=== PATIENT | female | born 1935 | race Caucasian/White ===

== ENCOUNTER 2018-08-03 11:15 | Inpatient (IN) | payer MEDICARE, BC ==
[~2018-08-03] VITALS: Ht 154.9 cm; Wt 84.8 kg
[2018-08-03] MEDS ORDERED: TENORMIN50 MG PO (11:22)
[2018-08-03] MEDS ORDERED: HYDRALAZINE HCL25 MG PO (11:22)
[2018-08-03] MEDS ORDERED: ZANAFLEX4 MG PO (11:23)
[2018-08-03] MEDS ORDERED: OMEPRAZOLE20 M1 PO (11:23)
[2018-08-03] MEDS ORDERED: HYDROCODON-ACE1 EA10 PO (11:24)
[2018-08-03] MEDS ORDERED: LASIX40 MG PO (11:24)
[2018-08-03] MEDS ORDERED: ZYLOPRIM300 MG PO (11:24)
[2018-08-03] MEDS ORDERED: ELIQUIS2.5 MG PO (11:25)
[2018-08-03] MEDS ORDERED: HYDROXYCHLOROQUINE (11:26)
[2018-08-03] MEDS ORDERED: ALDACTONE25 MG PO (11:27)
[2018-08-03] MEDS ORDERED: VITAMIN D5000 UNIT PO (11:27)
[2018-08-03] MEDS ORDERED: [UNRECOGNIZED DRUG - OTHER] (11:28)
[2018-08-03 11:50] LABS: BASOPHILS 0.2 % (0-2); EOSINOPHILS 0.5 % (0-7); HEMATOCRIT 36.7 % (36.0-48.0); HEMOGLOBIN 11.6 g/dL (12-16); IMMATURE GRANULOCYTES 1.1 % (0-5); LYMPHOCYTES 16.6 % (15-50); MCH 29.1 pg (26.0-34.0); MCHC 31.6 g/dL (31.0-37.0); MCV 92.2 fL (80.0-100.0); MONOCYTES 8.4 % (2-11); NEUTROPHILS 73.2 % (40-80); RBC 3.98 10x6/uL (4.00-5.40); RDW 14.4 % (11.5-14.5); WBC 9.4 10x3/uL (4.8-10.8)
[2018-08-03 11:53] LABS: PLATELET COUNT 260 10x3/uL (130-400)
[2018-08-03 12:10] LABS: ALBUMIN 3.4 g/dL (3.4-5.0); ALKALINE PHOSPHATASE 91 U/L (46-116); ALT (SGPT) 24 U/L (10-68); AMYLASE - SERUM 58 U/L (25-115); BILIRUBIN - TOTAL 0.34 mg/dL (0.2-1.3); CALC OSMOLALITY 286 mosm/kg (275-300); CALCIUM 9.7 mg/dL (8.5-10.1); CARBON DIOXIDE 30.2 mmol/L (21.0-32.0); CHLORIDE - SERUM 102 mmol/L (98-107); CREATININE - SERUM 1.5 mg/dL (0.6-1.3); GLUCOSE 124 mg/dL (74-106); LIPASE 129 U/L (73-393); POTASSIUM - SERUM 3.9 mmol/L (3.5-5.1); PROTEIN - SERUM 7.5 g/dL (6.4-8.2); SODIUM 139 mmol/L (136-145); TROPONIN-I < 0.017 ng/mL (0.000-0.060); UREA NITROGEN 36 mg/dL (7-18); eGFR NON AFRICAN AMERICAN 35 mL/min (90-120)
--- NOTE | 2018-08-03 13:37 | NUR ---
URINE SAMPLE SENT TO THE LAB
[2018-08-03 15:09] LABS: APPEARANCE CLEAR (CLEAR); BILIRUBIN NEGATIVE (NEGATIVE); COLOR YELLOW (YELLOW); GLUCOSE NEGATIVE (NEGATIVE); KETONE NEGATIVE (NEGATIVE); NITRITE NEGATIVE (NEGATIVE); PROTEIN NEGATIVE (NEGATIVE); UROBILINOGEN NORMAL (NORMAL)
[2018-08-03 15:17] LABS: BACTERIA MANY /hpf (NONE SEEN); EPITHELIAL CELLS 0-5 /hpf (0-5); RED CELLS - URINE OCC /hpf (0-5); WHITE CELLS - URINE 0-5 /hpf (0-5)
[2018-08-03 16:06] VITALS: BP 169/55
--- NOTE | 2018-08-03 18:20 | NUR ---
I have reviewed this patient and I concur with the Shift Assessment completed by the Licensed Practical Nurse today this shift.
[2018-08-03 20:00] VITALS: BP 130/42
[2018-08-04 04:00] VITALS: BP 180/65
[2018-08-04 05:49] LABS: BASOPHILS 0.1 % (0-2); EOSINOPHILS 0.6 % (0-7); HEMATOCRIT 35.8 % (36.0-48.0); HEMOGLOBIN 11.3 g/dL (12-16); IMMATURE GRANULOCYTES 0.7 % (0-5); LYMPHOCYTES 11.3 % (15-50); MCH 29.1 pg (26.0-34.0); MCHC 31.6 g/dL (31.0-37.0); MCV 92.3 fL (80.0-100.0); MEAN PLATELET VOLUME 9.7 fL (7.4-10.4); MONOCYTES 9.9 % (2-11); NEUTROPHILS 77.4 % (40-80); PLATELET COUNT 273 10x3/uL (130-400); RBC 3.88 10x6/uL (4.00-5.40); RDW 14.5 % (11.5-14.5); WBC 10.9 10x3/uL (4.8-10.8)
[2018-08-04 06:16] LABS: ALBUMIN 2.9 g/dL (3.4-5.0); ANION GAP 12.1 mmol/L (8-16); BILIRUBIN - TOTAL 0.43 mg/dL (0.2-1.3); CALCIUM 9.3 mg/dL (8.5-10.1); CARBON DIOXIDE 28.5 mmol/L (21.0-32.0); POTASSIUM - SERUM 3.6 mmol/L (3.5-5.1); PROTEIN - SERUM 6.5 g/dL (6.4-8.2)
[2018-08-04 06:24] LABS: CREATININE - SERUM 1.1 mg/dL (0.6-1.3)
[2018-08-04 08:00] VITALS: BP 147/69
--- NOTE | 2018-08-04 11:34 | NUR ---
PT RESTING IN BED. NO SIGNS OF DISTRESS. IV TO LEFT FORARM PATENT NO REDNESS OR TENDERNESS. ON TELEMETRY 69 SR. ALL FALL PRECAUTIONS IN PLACE. DENIES ANY FUTHER NEED AT THIS TIME. CALL LIGHT IN REACH. BED LOW POSITION. FAMILY AT BEDSIDE.
--- NOTE | 2018-08-04 12:34 | HP ---
PATIENT: KARLIE MYERS MEDICAL RECORD: [id number] ACCOUNT: [id number] LOCATION:[id number] : 34 ADMISSION DATE: 08/03/18 PCP: YORDY GRIFFITHS MD HISTORY AND PHYSICAL EXAMINATION DATE OF ADMISSION: 08/03/2018 CHIEF COMPLAINT: Lower abdominal pain. HISTORY OF PRESENT ILLNESS: This is an 83-year-old female who was brought to the ER with complaints of pain in the right lower quadrant of the abdomen into the right groin and right anterior thigh, it has been going on for several weeks but really got worse over the last 2 weeks, worse with standing and walking, better with lying, better with rest. She denies any recent trauma. In the ER, white count was normal. Comprehensive metabolic panel was essentially normal except creatinine a little elevated at 1.5. Her amylase and lipase were normal. Urinalysis showed trace leukocytes and many bacteria. CT of the abdomen and pelvis without contrast showed multiple rounded hyperintense lesions in both kidneys, likely hemorrhagic or proteinaceous renal cysts, moderate fecal material is noted in the colon, there is what appears to be diverticulitis in the left lower quadrant of the colon. She is admitted for further treatment. PAST MEDICAL HISTORY: Hypertension, hyperlipidemia, gout, psoriatic arthritis, thyroid nodule, fibromyalgia, rheumatoid arthritis, diastolic dysfunction, left lower extremity DVT after laparoscopic cholecystectomy in 2017. PAST SURGICAL HISTORY: Appendectomy, hysterectomy, cataract repair, left knee arthroscopy in 2005, followed by left total knee arthroplasty by Dr. Castillo. She has had right ankle tendon repair, bilateral carpal tunnel release, left trigger thumb, and cholecystectomy. ALLERGIES: AMITRIPTYLINE AND PENICILLIN. HOME MEDICATIONS: Plaquenil 200 mg once a day, allopurinol 300 mg once a day, atenolol 50 mg once a day, hydrocodone 10/325 one p.o. t.i.d. p.r.n. chronic lower back pain, spironolactone 25 mg once a day, Eliquis 2.5 mg twice a day, hydralazine 25 mg once at bedtime, Lasix 40 mg once a day, tizanidine 4 mg at bedtime, MiraLax p.r.n., and Dulcolax. SOCIAL HISTORY: , retired. HABITS: Never smoked. No alcohol, no drugs. FAMILY HISTORY: Father of colon cancer. He had arthritis and stroke and history of alcohol abuse. Mother of breast cancer. She also had arthritis. REVIEW OF SYSTEMS: GENERAL: No major weight changes. HEENT: No particular sinus or allergy problems. RESPIRATORY: No history of asthma or emphysema. CARDIAC: She has a diastolic dysfunction, followed by [facility] senior quality engineer. HISTORY AND PHYSICAL [id number] KARLIE MYERS GASTROINTESTINAL: She has occasional heartburn. GENITOURINARY: She does state that 2 or 3 times a week she seems to have some sort of vaginal discharge, though she has had a complete hysterectomy. Her daughter, an RN, is concerned that there may be a fistula between the colon and vagina. MUSCULOSKELETAL: She has fibromyalgia. She has arthritic aches and pains. NEUROLOGIC: She has chronic low back pain and sees a chronic pain specialist. She is on chronic pain medication. She has spinal stenosis. PSYCHIATRIC: No depression or melancholia. PHYSICAL EXAMINATION: VITAL SIGNS: Temperature 97.7, pulse 61, respirations 18, blood pressure 169/55, O2 sat 97%. GENERAL: She is awake and alert. She does not appear to be in acute distress. Her daughter is at bedside. SKIN: Warm and dry. HEENT: Grossly within normal limits. NECK: Supple. HEART: Regular rate and rhythm without murmur. LUNGS: Fairly clear. ABDOMEN: Soft. There is some mild tenderness in the lower abdomen and it is symmetrical. No guarding, no rebound, no mass. She shows me where a lot of her pain is and it is down in the groin area, more on the right side. She states this is a lot worse when she is up and trying to walk. EXTREMITIES: Straight leg raise negative for radiating pain. No edema. LABORATORY DATA: Urinalysis, trace leukocytes, many bacteria. CBC with a white count 9400, hemoglobin 11.6, hematocrit 36.7. Basic Metabolic Panel: Sodium 139, potassium 3.9, chloride 102, CO2 30.2, BUN 36, creatinine 1.5, glucose 124, and calcium 9.7. Liver functions are all normal. Amylase 58, lipase is 129. Troponin less than 0.017. CT of the abdomen and pelvis without contrast showed multiple rounded hyperintense lesions in both kidneys, likely hemorrhagic or proteinaceous renal cysts, moderate fecal material in the colon suggests constipation. There is what appears to be diverticulitis in the sigmoid colon. ASSESSMENT: 1. Diverticulitis with lower abdominal pain. 2. Right groin pain and anterior thigh pain. This is concerning for worsening spinal stenosis. 3. Hypertension. 4. Fibromyalgia. PLAN: She is admitted and she is given IV antibiotics for diverticulitis. Consider MRI of the lumbar spine to better look at her nerves there and see if there is any damage especially on the right side. Other tests or procedures as warranted. TRANSINT:[id number] Voice Confirmation ID: [id number] DOCUMENT ID: [id number] HISTORY AND PHYSICAL [id number] KARLIE MYERS WILLIAM MD at 1234 CC: [id number] DICTATION DATE: 08/04/18 0027 FOOD SUPERVISOR: 08/04/18 0243 ADM IN [facility] [address] [place] [address]
[2018-08-04 13:54] VITALS: Ht 154.9 cm; Wt 84.8 kg
[2018-08-04 15:10] VITALS: BP 128/56
--- NOTE | 2018-08-04 18:09 | NUR ---
I have reviewed this patient and I concur with the Shift Assessment completed by the Licensed Practical Nurse today this shift.
[2018-08-04 21:01] VITALS: BP 159/57
[2018-08-05 00:48] VITALS: BP 143/59
[2018-08-05 05:25] VITALS: BP 154/60
--- NOTE | 2018-08-05 09:03 | NUR ---
PATIENT UP TO RESTROOM WITH ASSISTANCE. NO DISTRESS. CL IN REACH
[2018-08-05 09:19] VITALS: BP 167/72
[2018-08-05 12:56] VITALS: BP 154/65
[2018-08-05] MEDS ORDERED: LEVOFLOXACIN500 MG PO (16:46)
[2018-08-05] MEDS ORDERED: FLAGYL500 MG PO (16:47)
--- NOTE | 2018-08-05 18:13 | NUR ---
DISCHARGE INSTRUCTIONS GIVEN TO PATIENT AND WITH UNDERSTANDING VOICED, INCLUDING HOLDING BLOOD THINERS AND CT GUIDED BIOPSY, BOTH VOICED UNDERSTANDING AND PATIENT TAKEN TO PRIVATE CAR VIA WHEELCHAIR
== END 2018-08-05 18:15 | disposition home or self-care (01) | DRG 552 ==
LOC: D.ER 11:15 → D.MS 16:37
PROVIDERS: Family Medicine; ADMIT Family Medicine; ATTEND Family Medicine
DX: M48.061 Spinal stenosis, lumbar region without neurogenic claudication (principal); K57.92 Diverticulitis of intestine, part unspecified, without perforation or abscess without bleeding; I10 Essential (primary) hypertension; M79.7 Fibromyalgia; D41.02 Neoplasm of uncertain behavior of left kidney; D41.01 Neoplasm of uncertain behavior of right kidney; I12.9 Hypertensive chronic kidney disease with stage 1 through stage 4 chronic kidney disease, or unspecified chronic kidney disease; N18.9 Chronic kidney disease, unspecified

== ENCOUNTER 2018-08-12 06:53 | Outpatient (CLI) | payer MEDICARE, BC ==
[~2018-08-12] VITALS: Ht 154.9 cm; Wt 89.1 kg
[~2018-08-12 06:53] MED LIST: ALDACTONE25 MG PO; ELIQUIS2.5 MG PO; FLAGYL500 MG PO; HYDRALAZINE HCL25 MG PO; HYDROCODON-ACE1 EA10 PO; HYDROXYCHLOROQUINE; LASIX40 MG PO; LEVOFLOXACIN500 MG PO; OMEPRAZOLE20 M1 PO; TENORMIN50 MG PO; VITAMIN D5000 UNIT PO; ZANAFLEX4 MG PO; ZYLOPRIM300 MG PO; [UNRECOGNIZED DRUG - OTHER]
[2018-08-12 07:30] LABS: BASOPHILS 0.2 % (0-2); EOSINOPHILS 0.5 % (0-7); HEMATOCRIT 36.8 % (36.0-48.0); LYMPHOCYTES 14.8 % (15-50); MCH 28.9 pg (26.0-34.0); MCHC 32.6 g/dL (31.0-37.0); MCV 88.7 fL (80.0-100.0); MEAN PLATELET VOLUME 9.6 fL (7.4-10.4); MONOCYTES 7.9 % (2-11); NEUTROPHILS 74.6 % (40-80); RBC 4.15 10x6/uL (4.00-5.40); RDW 14.9 % (11.5-14.5); WBC 9.5 10x3/uL (4.8-10.8)
[2018-08-12 07:34] LABS: ANION GAP 9.5 mmol/L (8-16); CALCIUM 9.3 mg/dL (8.5-10.1); CARBON DIOXIDE 28.5 mmol/L (21.0-32.0); CREATININE - SERUM 1.1 mg/dL (0.6-1.3)
[2018-08-12 07:35] LABS: PLATELET COUNT 209 10x3/uL (130-400)
[2018-08-12 07:46] LABS: INR 1.18 (0.85-1.17); PROTIME 14.4 SECONDS (11.6-15.0)
[2018-08-12 07:47] LABS: APTT 28.7 SECONDS (22.8-39.4)
[2018-08-12 07:56] VITALS: BP 150/60; Ht 154.9 cm; Wt 89.1 kg
--- NOTE | 2018-08-12 12:50 | NUR ---
1245 PCXR DONE. FREQUENT VS MAINTAIN DRESSING CDI X2
--- NOTE | 2018-08-12 14:20 | NUR ---
1415 ORDER RECEIVED FOR ZOFRAN OTC GIVEN PER E-MAR. NO EMESIS ONLY NAUSEA. FAMILY AT SIDE.
--- NOTE | 2018-08-12 15:12 | NUR ---
1430 IV REMOVED, PT ASSISTED UP TO BATHROOM, PT A BIG FALL RISK FROM HAVING CRONIC BACK PAIN. FAMILY GAVE PT A PAIN PILL. AFTER GETTING UP TWICE TO USE THE BATHROOM, PT BECAME NAUSEATED. SPECIALS CALLED FOR A [facility] ORDER.
--- NOTE | 2018-08-12 15:14 | NUR ---
1417 MEDICATED FOR NAUSEA SHORTY COHNAN
== END 2018-08-12 15:05 | disposition home or self-care (01) ==
LOC: D.SP 06:53 → D.RAD 09:00 → D.SP 15:05
PROVIDERS: Radiology Diagnostic Radiology; ATTEND Obstetrics & Gynecology
DX: N28.9 Disorder of kidney and ureter, unspecified (principal)

== ENCOUNTER → 2018-09-03 10:09 | Outpatient (CLI) | payer MEDICARE, BC ==
[~2018-09-03] VITALS: Ht 154.9 cm; Wt 84.5 kg
[2018-09-03 11:24] VITALS: BP 154/66; Ht 154.9 cm; Wt 84.5 kg
--- NOTE | 2018-09-03 11:27 | NUR ---
1040-ATTEMPT TO CATHERIZE BLADDER WITH 6 FR. STRAIGHT FEMALE CATH-UNSUCCESSFUL. CATHETERIZE BLADDER UNDER ASEPTIC TECHNIQUE WITH 16 CHINESE-APPROXIMATELY 100CC CLOUDY, MURKY DARK URINE COLLECTED & SENT TO LAB FOR TESTING.
[2018-09-03 12:14] LABS: APPEARANCE CLOUDY (CLEAR); COLOR YELLOW (YELLOW); NITRITE NEGATIVE (NEGATIVE); SPECIFIC GRAVITY 1.015 (1.005-1.020)
[2018-09-03 12:15] LABS: BACTERIA MANY /hpf (NONE SEEN); BILIRUBIN NEGATIVE (NEGATIVE); EPITHELIAL CELLS 0-5 /hpf (0-5); GLUCOSE NEGATIVE (NEGATIVE); KETONE NEGATIVE (NEGATIVE); MUCUS <1+ /lpf (NONE SEEN); PROTEIN 1+ mg/dL (NEGATIVE); UROBILINOGEN NORMAL (NORMAL); WHITE CELLS - URINE >50 /hpf (0-5)
== END | disposition home or self-care (01) ==
LOC: D.OPS 10:00
PROVIDERS: ATTEND Specialist
DX: N39.0 Urinary tract infection, site not specified (principal); M54.9 Dorsalgia, unspecified

== ENCOUNTER 2018-09-17 10:02 | Outpatient (CLI) | payer MEDICARE, BC ==
[~2018-09-17] VITALS: Ht 154.9 cm; Wt 81.8 kg
[2018-09-17 11:56] VITALS: BP 174/83; Ht 154.9 cm; Wt 81.8 kg
--- NOTE | 2018-09-17 12:04 | NUR ---
IN AND OUT CATH COMPLETED, CLEAR YELLOW URINE OBTAINED.
[2018-09-17 12:55] LABS: APPEARANCE HAZY (CLEAR); BACTERIA MODERATE /hpf (NONE SEEN); BILIRUBIN NEGATIVE (NEGATIVE); COLOR YELLOW (YELLOW); EPITHELIAL CELLS 0-5 /hpf (0-5); GLUCOSE NEGATIVE (NEGATIVE); HYALINE CAST OCC /lpf (NONE SEEN); KETONE NEGATIVE (NEGATIVE); MUCUS >1+ /lpf (NONE SEEN); NITRITE NEGATIVE (NEGATIVE); PROTEIN NEGATIVE (NEGATIVE); RED CELLS - URINE 0-5 /hpf (0-5); SPECIFIC GRAVITY 1.015 (1.005-1.020); UROBILINOGEN NORMAL (NORMAL); WHITE CELLS - URINE 0-5 /hpf (0-5)
== END 2018-09-17 12:04 | disposition home or self-care (01) ==
LOC: D.OPS 10:02
PROVIDERS: ATTEND Specialist
DX: N39.0 Urinary tract infection, site not specified (principal)

== ENCOUNTER → 2018-10-09 09:25 | Outpatient (CLI) | payer MEDICARE, BC ==
[2018-09-17 11:56] VITALS: BMI 34.0
--- NOTE | ~2018-10-09 | HEMODYNAMI ---
PATIENT:KARLIE MYERS MEDICAL RECORD: [id number] : 33 LOCATION:[facility] ADMISSION DATE: 10/09/18 Generatedon:10/09/201810:35 Patient name: KARLIE MYERS Patient #: [id number] SSN: : [id number] Date of study: 10/09/2018 Page: Of Hemodynamic Procedure Report Patient Data Patient Demographics Procedure consent was obtained First Name: KARLIE Gender: Female Last Name: LUCIA : 1935 Middle Initial: L Age: 83 year(s) Patient #: [id number] Race: Unknown Additional ID: [id number] Contact details [address]: [address] [place] [address] State: [place] City: [place] Zip code: [address] Admission Admission Data Admission Date: 10/09/2018 Admission Time: 9:25 Procedure Procedure Types Cath Procedure Peripheral Cath Diagnostic Procedure Miscellaneous Aspiration/Injection (Joint) Procedure Description Procedure Date Procedure Date: 10/09/2018 Procedure Start Time: 10:26 Procedure Staff Name Function Roman Parker MD Performing Physician Jordana Benitez RT Scrub Procedure Data Cath Procedure Fluoroscopy Diagnostic fluoroscopy Total fluoroscopy Time: 0.1 time: 0.1 min min Diagnostic fluoroscopy Total fluoroscopy dose: 2 dose: 2 mGy mGy Hemodynamics Rest Pre Cath Intra NCS Post Cath Procedure Log Time Note 10:05:13 Time tracking: Regular hours (M-F 7:00 - 5:00) 10:05:47 KIT EPIDURAL CATHETERIZATION opened to sterile field. 10:06:01 Signed procedure consent form obtained from patient. 10:06:30 Lumbar area was prepped with betadine and draped in sterile fashion 10:24:33 - 10:24:37 Physician arrived 10::38 --------ALL STOP TIME OUT------ 10:24:38 Final Timeout: patient, procedure, and site verified with staff and physician. All members of the team are in agreement. 10:25:53 Full Disclosure recording started 10:26:08 Local anesthetic to Lumbar area with Lidocaine 1% by Roman Parker MD.INITIAL ACCESS ONLY 10:30:52 Procedure started. 10:31:30 Procedure ended.(Physican Out) 10:31:33 Fluoroscopy time 00.10 minutes. 10::37 Fluoroscopy dose: 2 mGy 10:31:37 Flurop Dose total: 2 10:31:41 Procedure and supply charges have been captured, reviewed, submitted an d are correct. Device Usage Item Name Manufacture Quantity Catalog Hospital Part Current Minima l Lot# / Number Charge Number Stock Stock Serial# Code KIT EPIDURAL Teleflex 1 [id number] CATHETERIZATION Signature Audit [place] Stage Time Signature Unsigned Intra-Procedure 10/09/2018 Jordana Benitez 10:35:17 AM RT(R) [facility] [address] [place] [address]
== END | disposition home or self-care (01) ==
LOC: D.SP 09:25 → D.RAD 11:00 → D.SP 11:00
PROVIDERS: ATTEND Specialist
DX: M48.56XA Collapsed vertebra, not elsewhere classified, lumbar region, initial encounter for fracture (principal); M54.5 Low back pain; Z01.812 Encounter for preprocedural laboratory examination; Z79.01 Long term (current) use of anticoagulants

== ENCOUNTER → 2018-11-11 13:12 | Outpatient (CLI) | payer MEDICARE, BC ==
[2018-09-17 11:56] VITALS: BMI 34.0
[~2018-11-11 13:12] MED LIST changes: -HYDROXYCHLOROQUINE; +HYDROXYCHLOROQUINE PO
[2018-11-11 14:05] LABS: CREATININE - SERUM 1.3 mg/dL (0.6-1.3)
== END | disposition home or self-care (01) ==
LOC: D.CT 13:12
PROVIDERS: ATTEND Family Medicine
DX: N32.1 Vesicointestinal fistula (principal)

== ENCOUNTER 2018-11-13 11:00 | Inpatient (IN) | payer MEDICARE, BC ==
[~2018-11-13] VITALS: Ht 157.5 cm; Wt 92.7 kg
[2018-11-13 12:25] LABS: BASOPHILS 0.2 % (0-2); EOSINOPHILS 0.6 % (0-7); HEMATOCRIT 36.5 % (36.0-48.0); HEMOGLOBIN 11.4 g/dL (12-16); IMMATURE GRANULOCYTES 0.5 % (0-5); LYMPHOCYTES 20.1 % (15-50); MCH 28.6 pg (26.0-34.0); MCHC 31.2 g/dL (31.0-37.0); MCV 91.5 fL (80.0-100.0); MEAN PLATELET VOLUME 9.1 fL (7.4-10.4); MONOCYTES 7.2 % (2-11); NEUTROPHILS 71.4 % (40-80); RBC 3.99 10x6/uL (4.00-5.40); RDW 14.7 % (11.5-14.5); WBC 9.5 10x3/uL (4.8-10.8)
[2018-11-13 12:30] LABS: PLATELET COUNT 268 10x3/uL (130-400)
[2018-11-13 12:58] LABS: ANION GAP 12.8 mmol/L (8-16); CALCIUM 8.6 mg/dL (8.5-10.1); CARBON DIOXIDE 31.9 mmol/L (21.0-32.0); CREATININE - SERUM 1.4 mg/dL (0.6-1.3); POTASSIUM - SERUM 3.7 mmol/L (3.5-5.1)
[2018-11-16] VITALS (36 sets, daily range): BP systolic 55–141; BP diastolic 39–96; Ht 157.5 cm; Wt 92.7 kg
[2018-11-16 13:43] LABS: HEMATOCRIT 28.6 % (36.0-48.0); HEMOGLOBIN 8.9 g/dL (12-16)
--- NOTE | 2018-11-16 15:02 | NUR ---
JULIANA [address] LOT#[id number] EXP 05-08-2023 " " LOT#[id number] EXP 07-08-2023
[2018-11-16 17:47] LABS: BASOPHILS 0 % (0-2); EOSINOPHILS 0 % (0-7); HEMATOCRIT 29.7 % (36.0-48.0); HEMOGLOBIN 9.8 g/dL (12-16); LYMPHOCYTES 2.8 % (15-50); MCH 29.2 pg (26.0-34.0); MCV 88.4 fL (80.0-100.0); MEAN PLATELET VOLUME 9.6 fL (7.4-10.4); MONOCYTES 4.6 % (2-11); NEUTROPHILS 91.6 % (40-80); RBC 3.36 10x6/uL (4.00-5.40); RDW 14.4 % (11.5-14.5); WBC 13.5 10x3/uL (4.8-10.8)
[2018-11-16 17:49] LABS: PLATELET COUNT 142 10x3/uL (130-400)
--- NOTE | 2018-11-16 17:50 | NUR ---
REC'D PT FROM OR, DR PARRA AT BEDSIDE. JOANNA DRAIN X 2, MAHER, LEFT RADIAL ART LINE ZEROED, WRIST PROTECTOR INTACT, PULSES PALP. MIDLINE INCISION DRESSING CDI. RIGHT IJ DOUBLE LUMEN DRESSING CDI. CVP MONITOR ON, BICARB DRIP INFUSING, LEVOPHED INFUSING. VENT SETTINGS NOTED. FAMILY UPDATED. MONITORS ON AND WORKING, WILL CONTINUE TO OBSERVE.
[2018-11-16 17:51] LABS: INR 1.49 (0.85-1.17); PROTIME 17.4 SECONDS (11.6-15.0)
--- NOTE | 2018-11-16 18:50 | NUR ---
FAMILY HAS BEEN IN TO SEE PATIENT. UPDATE PROVIDED.
--- NOTE | 2018-11-16 19:00 | NUR ---
REPORT RECEIVED, CARE ASSUMED. PT IS LAYING IN BED INTUBATED AND UNRESPONSIVE AT THIS TIME. PT HAS AN A-LINE TO LEFT RADIAL WITH A GOOD WAVE FORM. PT IS ON A DRIP AT THIS TIME TO MAINTAIN BP. INITIAL ASSESSMENT COMPLETED, SEE FLOWSHEET. NO SIGNS OF ACUTE DISTRESS NOTED AT THIS TIME. WILL CONTINUE TO MONITOR.
--- NOTE | 2018-11-16 19:30 | NUR ---
IT IS NOTED AT THIS TIME THAT PT'S BP IS STARTING TO FALL. PAGED DR PARRA FOR ORDERS. ORDERS WERE RECEIVED TO DO A STAT ABG. ABG OBTAINED AND DR PARRA WAS PAGED AGAIN FOR THE RESULTS. ORDERS RECEIVED. WILL CONTINUE TO MONITOR.
--- NOTE | 2018-11-16 20:00 | NUR ---
FAMILY IS AT BEDSIDE AT THIS TIME. FAMILY WANTS TO MAKE SURE WE ARE AWARE THAT THEY WANT PT TO BE A DNR. INFORMED DR PARRA OF THIS FACT. FURTHER ORDERS RECEIVED. PT BP CONTINUES TO BE LOW. WILL CONTINUE TO MONITOR.
--- NOTE | 2018-11-16 21:00 | NUR ---
UPDATED DR PARRA REGARDING PT STATUS. ORDERS RECEIVED AT THIS TIME. WILL CONTINUE TO MONITOR.
--- NOTE | 2018-11-16 22:00 | NUR ---
UPDATED DR PARRA REGARDING PT'S MOST RECENT LAB WORK, NEW ORDERS RECEIVED. PT'S BP CONTINUES TO BE LOW. NO FURTHER NEEDS NOTED. WILL CONTINUE TO MONITOR.
[2018-11-16 22:12] LABS: BASOPHILS 0.1 % (0-2); EOSINOPHILS 0.1 % (0-7); HEMOGLOBIN 8.4 g/dL (12-16); IMMATURE GRANULOCYTES 4.9 % (0-5); LYMPHOCYTES 10.7 % (15-50); MCH 29.9 pg (26.0-34.0); MCHC 32.3 g/dL (31.0-37.0); MEAN PLATELET VOLUME 9.6 fL (7.4-10.4); MONOCYTES 6.8 % (2-11); NEUTROPHILS 77.4 % (40-80); RBC 2.81 10x6/uL (4.00-5.40); RDW 15.4 % (11.5-14.5); WBC 13.2 10x3/uL (4.8-10.8)
[2018-11-16 22:27] LABS: APTT 62.6 SECONDS (22.8-39.4)
[2018-11-16 22:33] LABS: ALBUMIN 0.7 g/dL (3.4-5.0); BILIRUBIN - TOTAL 0.49 mg/dL (0.2-1.3); CALCIUM 8.4 mg/dL (8.5-10.1); CARBON DIOXIDE 16.6 mmol/L (21.0-32.0); CREATININE - SERUM 1.8 mg/dL (0.6-1.3)
[2018-11-16 22:42] LABS: ANION GAP 25.1 mmol/L (8-16); PROTEIN - SERUM 1.6 g/dL (6.4-8.2)
[2018-11-16 22:44] LABS: INR 3.56 (0.85-1.17); MCV 92.5 fL (80.0-100.0); PLATELET COUNT 59 10x3/uL (130-400); POTASSIUM - SERUM 6.7 mmol/L (3.5-5.1); PROTIME 34.8 SECONDS (11.6-15.0)
[2018-11-16 22:58] LABS: PLATELET ESTIMATE DECREASED
--- NOTE | 2018-11-16 23:00 | NUR ---
REASSESSMENT COMPLETED, SEE FLOWSHEET FOR DETAILS. PT IS LAYING IN BED UNRESPOSIVE AND INTUBATED. PT'S BP CONTINUES TO BE LOW. AT THIS TIME IT IS ALSO NOTED THAT PT'S STOMACH APPEARS TO BE LARGER THEN PREVIOUSLY. STOMACH IS HARD TO TOUCH. JOANNA DRAIN ON THE LEFT SIDE IS NOT PUTTING OUT MUCH RIGHT SIDE. EMPTIED JOANNA DRAIN ON LEFT SIDE AND RECOMPRESSED, DARK RED LIQUID STARTED TO SQUIRT INTO JOANNA CONTAINER. A TOTAL OF 1000ML WAS EMPTYED FROM JOANNA ON LEFT SIDE IN THE MATTER OF APPROXIMATELY ONE HOUR. DR PARRA WAS INFORMED OF THIS AND ALSO OF THE BLOOD LEAKING FROM AROUND JOANNA DRAIN SITE. NO NEW ORDERS RECEIVED AT THIS TIME. WILL CONTINUE TO MONITOR.
[2018-11-17] VITALS (20 sets, daily range): BP systolic 22–78; BP diastolic 20–54
--- NOTE | 2018-11-17 | NUR ---
PT'S BP CONTINUES TO BE LOW. JOANNA DRAIN CONTINUES TO PUT OUT COPIOUS AMOUNTS OF DARK RED LIQUID. CONTINUING WITH PLAN OF CARE AT THIS TIME.
--- NOTE | 2018-11-17 01:00 | NUR ---
CONTINUING WITH PLAN OF CARE AT THIS TIME. DR PARRA IS BEING GIVEN REGULAR UPDATES TO PT'S PROGRESSIVELY DECLINING STATUS.
--- NOTE | 2018-11-17 03:00 | NUR ---
RECHECKED PT'S ABG, SEVERAL CRITICAL LABS. PT'S BP IS DROPPING FURTHER AND QUICKLY. INFORMED PT'S FAMILY OF THIS FACT AND ALLOWED THEM TO COME BACK TO SEE PT. DR PARRA INFORMED OF PT STATUS AND PT'S MOST RECENT LABWORK. INFORMED THAT DR PARRA WAS ON HIS WAY IN AND HE REQUESTED TO HAVE THE FAMILY PRESENT.
--- NOTE | 2018-11-17 03:34 | OP ---
PATIENT NAME: KARLIE MYERS MEDICAL RECORD: [id number] :33 LOCATION:.[facility] D.2304 ADMISSION DATE:11/16/18 SURGEON: COOPER PARRA MD DATE OF OPERATION: 11/16/2018 SURGEON: Copoer Parra MD PREOPERATIVE DIAGNOSES: Colovesical fistula, chronic pelvic pain, recurrent UTI. POSTOPERATIVE DIAGNOSES: Colovesical fistula, chronic pelvic pain, recurrent UTI. PROCEDURE PERFORMED: 1. Laparoscopic mobilization of splenic flexure. 2. Laparotomy with sigmoid colectomy. 3. Splenectomy. 4. Cystoscopy with right ureteral stent insertion by Dr. Garcia. Please see separate operative report. CO-SURGEON: Levi Foreman MD ANESTHESIA: General. COMPLICATIONS: Acute blood loss. WOUND CLASS: Contaminated. OPERATIVE COURSE: After consent was obtained, the patient was taken to the operating room and placed in the supine position on the operating table. Next, general anesthesia was given via endotracheal intubation after a timeout was performed to confirm the correct patient and procedure. An Ioban dressing was placed. Local anesthetic was injected into the right lateral quadrant. A stab incision was made with 11-blade scalpel. Using a 5-mm bladeless optical trocar, the abdomen was entered under direct laparoscopic vision. Adequate pneumoperitoneum was achieved. The abdominal cavity was inspected, no evidence of bile injury, no evidence of bleeding. Three additional trocars were then placed, one in the right lower quadrant, one in the left lower quadrant, and one just below the umbilicus. All incisions were made with 11-blade scalpel. Trocars were placed under direct laparoscopic vision. The sigmoid colon was identified. It was densely adherent to the left lateral pelvic side wall. It was nonmobile. The sigmoid colon was unable to be mobilized laparoscopically. At this time, I decided to go ahead and perform laparoscopic mobilization of the splenic flexure. The white line of Toldt was taken using the Harmonic scalpel on the left lateral pelvic side wall. When we got to the splenic flexure, the midline 5-mm trocar was removed. A skin incision was made and the GelPort was placed. Using a hand-assisted laparoscopic approach, the splenic flexure was mobilized using the Harmonic scalpel. Once this was complete, the laparoscopic instruments were removed. The GelPort was removed and the mobilization was attempted at the sigmoid colon. The sigmoid colon was densely adherent all the way to the level of the pelvis. Blunt dissection was performed on the lateral pelvic side wall once a plane was created surgically. Careful dissection ensued, the sigmoid colon was mobilized medially. The left ureter was identified and vessel loop was placed. The sigmoid colon was indurated. Dissection then continued very slowly into the pelvis. The left ureter was OPERATIVE REPORT [id number] KARLIE MYERS traced as far to the pelvis as it could safely. There were no discernible tissue planes between the bladder and the anterior surface of the rectum. Again, the degree of difficulty in the dissection was substantial. A surgical plane was created using electrocautery. There were multiple areas of induration. Once the fistula was crossed, a single suture was placed into the dome of the bladder. The right ureter was then next identified. The rectum was unable to be mobilized off the left lateral pelvic side wall. At this time, intraoperative consultation was placed for Dr. Levi Garcia for cystoscopy and ureteral stent insertions as well as an intraoperative consult to my partner, Dr. Levi Foreman for further delineation of the anatomy. A cystoscopy was performed. There was no evidence of bowel perforation. Dr. Garcia performed a retrograde pyelogram. The left ureter had contrast that did extend to the left renal pelvis, but there was a marked area of stricturing just at the bladder trigone and distal ureter. He was unable to pass a wire or a stent through the left ureter. His attention was then turned to the right ureter. The orifice was cannulated. A wire was passed and a double-J stent was placed. Meticulous dissection was performed trying to mobilize the rectum off the left lateral pelvic side wall, which was unable to be accomplished safely. The presacral fascia was dissected in an effort to further mobilized the rectum to see if there was going to find an enough area of healthy tissue to perform anastomosis. The diseased portion of the rectum extended well into the bladder trigone and left ureter, which did not allow for us to perform an anastomosis safely. There was some contrast extravasation noted at the left ureter on pyelogram. I did not feel safe at this time to perform a primary anastomosis due to lack of viable healthy rectum and high rate of leak. During dissection of the presacral fascia, a pelvic vein was encountered, which had significant intraoperative hemorrhage. The hemorrhage was controlled with direct pressure, Fibrillar dressings and argon plasma beam coagulation. At this time, 2 JOANNA drains were placed into the pelvis through the previous trocar sites. Methylene blue was given earlier in the case. There was green urine in the Goodwin bag. There was no evidence of urine extravasation during the operation. Next, at this time, all retractors and lap pads were taken out of the pelvis. Direct pressure was held in the aorta during the fluid resuscitation. The patient received a total of 6 units of blood, 2 units of FFP, and 1 unit of platelets. Upon further investigation, there was also an area of significant splenic bleeding. At this time, an emergent splenectomy was performed using the YARIEL linear cutting stapler with adequate hemostasis to allow for full mobilization of the spleen and the midline incision was extended superiorly. At this time, the abdomen was copiously irrigated and suctioned with several liters of warm normal saline. The abdomen was copiously inspected. There was no evidence of bowel injury. No evidence of bleeding. The small bowel was run from ligament of Treitz to the terminal ileum on [address] Foreman was present throughout the second throughout the majority of the operation serving as a cosurgeon and web press operator assistant. At this time, the fascia was closed with #1 looped PDS. Skin was closed with reagan. The patient was transferred to the ICU in critical condition, intubated. TRANSINT:[id number] Voice Confirmation ID: [id number] DOCUMENT ID: [id number] OPERATIVE REPORT [id number] KARLIE MYERS,COOPER Kaminski MD at 0334 CC: [id number] DICTATION DATE: 11/16/18 1800 TECHNICIAN BIOLOGICAL HEALTH: 11/17/18 0152 ADM IN [facility] [id number] [place] [address]
--- NOTE | 2018-11-17 03:35 | NUR ---
FAMILY HAS DECIDED AT THIS TIME TO WITHDRAW CARE FROM THE PT DUE TO PT'S DECLINING STATUS AND WHAT THEY BELIEVE TO BE THE PT'S WISHES. DR PARRA PRESENT FOR THIS CONVERSATION. PRESSORS TO MAINTAIN BP TURNED OFF AT THIS TIME. CONTINUING TO PROVIDE SUPPORT TO PT AND FAMILY.
--- NOTE | 2018-11-17 04:15 | NUR ---
TIME OF 0415. PRONOUCED BY DR PARRA. FAMILY PRESENT AT BEDSIDE.
--- NOTE | 2018-11-17 04:50 | NUR ---
INFORMED [place] FLOOR LAYER OF PT'S PASSING. GIVEN GO AHEAD TO PROCEED WITH CALLING LUNA AND HOME.
--- NOTE | 2018-11-17 05:07 | NUR ---
JEREMY INFORMED OF PT'S PASSING. DONATION DECLINED DUE TO AGE.
--- NOTE | 2018-11-17 06:30 | NUR ---
HAVE ATTEMPTED TO CALL HOME MULTIPLE TIMES WITH NO ANSWER. PHONE CONTINUES TO RING UNTIL IT QUITS. WILL CONTINUE TO MAKE ATTEMPTS TO CONTACT HOME.
--- NOTE | 2018-11-17 07:05 | NUR ---
HOME NOTIFIED OF PT
--- NOTE | 2018-11-17 08:10 | NUR ---
home here for pt
--- NOTE | 2018-11-17 08:22 | OP ---
PATIENT NAME: KARLIE MYERS MEDICAL RECORD: [id number] :33 LOCATION:[facility] D.2304 ADMISSION DATE:11/16/18 SURGEON: LEVI LANDERS MD DATE OF OPERATION: 11/16/2018 SURGEON: Dr. Levi Landers ANESTHESIA: General. PREOPERATIVE DIAGNOSIS: Left rectoureteral fistula. POSTOPERATIVE DIAGNOSIS: Left rectoureteral fistula. PROCEDURES: Cystoscopy, left retrograde pyelogram, right ureteral stent insertion 6-Paraguayan x 24 cm without string attached. FINDINGS: Intraoperative cystoscopy shows no obvious fistula tract into the bladder. 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 There was no hydronephrosis proximally. I could see urine jets coming out of the left ureteral orifice. I could not get a Glidewire past the stricture and there is contrast extravasation either from my Glidewire perforation or from a rectoureteral fistula. ESTIMTATED BLOOD LOSS: None. CLINICAL HISTORY: This is an 83-year-old patient, whom Dr. Canales has on the operating table. She has a known rectovesical fistula. She comes to have this repaired. Dr. Canales thinks intraoperatively that she would like to have bilateral ureteral stents placed for an attempt at repair of the fistula and one goal. Therefore, she requested that bilateral ureteral stents. The patient has already been given general anesthetic. Her belly is open for his surgery. She had been prepped and draped in lithotomy position. I performed cystoscopy with a 21-Paraguayan cystoscope with 30-degree lens. Looking around the entire bladder surface. There were no bladder tumors. I could not find a fistula site. The left ureteral orifice was identified. There is one ureteral orifice on each side. I intubated it with an open-ended 5-Paraguayan ureteral catheter. A retrograde pyelogram was performed using diluted contrast. There is an extremely tight stricture in the intramural portion of the ureter, which would not allow my ureteral catheter to advance. Also, we could barely see the contrast at this point. However, by persisting with the contrast injection, we finally got contrast to go all the way up into the left kidney. There is no filling defect in the kidney or the proximal ureter. I attempted with a Glidewire multiple times to get past the stricture zone, but I was not successful. I therefore switched to the right side. A Sensor wire went up into the right renal pelvis without any difficulty. Over the Sensor wire, we inserted a 6-Paraguayan x 24 cm right ureteral stent. There was a significant amount of resistance in the proximal ureteral portion. Dr. Canales took out some of the clamps and such that were in the abdomen and this helped ease the passage of the ureteral stent. Once the stent was in correct position, the wire was withdrawn entirely and the distal end of the stent was pushed in using the pusher. OPERATIVE REPORT [id number] KARLIE MYERS I attempted one last time to get the wire into the left ureteral orifice and I was again unsuccessful to get it past the very opening of the ureteral orifice. I performed 1 more contrast injection and at this time we saw extravasation of contrast into the pelvis. At this point, all further attempts at left ureteral stent insertion were abandoned. She will need a left nephrostomy tube in the near future. At some point in the future, interventional radiology should be able to insert a left ureteral stent in an antegrade fashion. TRANSINT:[id number] Voice Confirmation ID: [id number] DOCUMENT ID: [id number] LEVI LANDERS MD at 0822 CC: [id number] DICTATION DATE: 11/16/18 150 DIRECTOR EMERGENCY: 11/17/18 0012 DIS IN 11/17/18 [facility] [address] [place] [address]
--- NOTE | 2018-11-17 09:12 | MORECARE ---
CASE MANAGEMENT DISCHARGE SUMMARY PATIENT: KARLIE MYERS UNIT: [id number] ADM DATE: 11/16/18 AGE: 83 : 34 SEX: F ROOM/BED: D.2304 AUTHOR: PATRICIA SCHMIDT PHYSICIAN: REFERRING PHYSICIAN: COOPER PARRA MD DATE OF SERVICE: 11/17/18 Discharge Plan Patient Name: KARLIE MYERS [facility] [facility] 1935 Planned Disposition: Anticipated Discharge Date: Discharge Date: 11/17/2018 Expected LOS: Initial Reviewer: [email or web address] Initial Review Date: 11/16/2018 Generated: 11/17/18 10:12 am Patient Name: KARLIE MYERS Page [id number] at 0912 All edits/amendments must be made on the electronic document DICTATION DATE: 11/17/18911 BLOW MOLD OPERATOR: HAMLET 11/17/18911 RPT#: [id number] DC DATE:11/17/18 STATUS: DIS IN [facility] [address] [place] [address] END OF REPORT
--- NOTE | 2018-12-08 14:25 | OP ---
PATIENT NAME: KARLIE MYERS MEDICAL RECORD: [id number] :33 LOCATION:[facility] D.2304 ADMISSION DATE:11/16/18 SURGEON: BALAJI STEVENS MD DATE OF OPERATION: 11/16/2018 PREOPERATIVE DIAGNOSIS: Colovesical fistula. POSTOPERATIVE DIAGNOSIS: Colovesical fistula. This is an trust administrative assistant's note. I assisted Dr. Cooper Parra with the laparotomy and splenectomy as well as identification of the ureters. My involvement in the operation is listed below. I was the trust administrative assistant during the laparotomy and identification of the ureters. I performed the majority of the splenectomy. I entered after the laparotomy incision had already been accomplished and Dr. Parra had already mobilized the colon. I assisted him with dissecting out the ureters. Dr. Garcia joined us as well. I was present for the last half of the operation, but not the first half of the operation. My involvement included retraction of tissue, some sharp and blunt dissection, irrigating and suctioning. Prior to closure, the patient was profoundly hypotensive and this required compression of the aorta. There was a good bit of blood in the left upper quadrant. My compression of the aorta was inferior to the transverse mesocolon. We identified there was some bleeding coming from the spleen. This was significant bleeding. I mobilized the spleen bluntly. The spleen came out in several pieces. After the first portion of the spleen was removed and I was able to rotate the spleen medially, I took loads of the Endo-YARIEL and stapled across the splenic hilum removing the spleen. We then oversewed the staple line with a running locking #1 Vicryl. There was no further hemorrhage. I assisted Dr. Parra with the abdominal closure. TRANSINT:[id number] Voice Confirmation ID: [id number] DOCUMENT ID: [id number] BALAJI STEVENS MD at 1425 CC: COOPER PARRA MD [id number] DICTATION DATE: 11/27/18911 PISTON MAKER: 11/27/18958 DIS IN 11/17/18 [facility] [id number] [place] [address]
== END 2018-11-17 04:15 | DRG 907 ==
LOC: D.SDCHOLD 11-16 07:45 → D.ICU 11-16 17:31
PROVIDERS: Anesthesiology; Urology; ADMIT Surgery; ATTEND Surgery
PROC: 0DTP0ZZ Resection of Rectum, Open Approach (ICD-10-PCS; 2018-11-16)
PROC: 0DTN0ZZ Resection of Sigmoid Colon, Open Approach (ICD-10-PCS; principal; 2018-11-16 10:00)
PROC: 07TP0ZZ Resection of Spleen, Open Approach (ICD-10-PCS; 2018-11-16 10:00)
PROC: 0T768DZ Dilation of Right Ureter with Intraluminal Device, Via Natural or Artificial Opening Endoscopic (ICD-10-PCS; 2018-11-16 10:00)
DX: T81.83XA Persistent postprocedural fistula, initial encounter (principal); D65 Disseminated intravascular coagulation [defibrination syndrome]; J95.821 Acute postprocedural respiratory failure; N32.1 Vesicointestinal fistula; D62 Acute posthemorrhagic anemia; I97.52 Accidental puncture and laceration of a circulatory system organ or structure during other procedure; D78.12 Accidental puncture and laceration of the spleen during other procedure; I13.0 Hypertensive heart and chronic kidney disease with heart failure and stage 1 through stage 4 chronic kidney disease, or unspecified chronic kidney disease; K57.92 Diverticulitis of intestine, part unspecified, without perforation or abscess without bleeding; D69.59 Other secondary thrombocytopenia; N73.6 Female pelvic peritoneal adhesions (postinfective); N18.9 Chronic kidney disease, unspecified; I50.9 Heart failure, unspecified; I25.10 Atherosclerotic heart disease of native coronary artery without angina pectoris